=== PATIENT | female | born 1980 | race Caucasian/White ===

== ENCOUNTER 2016-11-17 10:01 | Emergency (ER) | payer SELFPAY ==
[~2016-11-17] VITALS: Ht 170.2 cm; Wt 75.0 kg
[2016-11-17 10:04] VITALS: BP 138/80; PULSE 108; RESP 20; TEMP 99.1; O2SAT 99
--- NOTE | 2016-11-17 10:10 | PD ---
HPI Chief Complaint: Injury Time Seen by Provider: 10:09 Travel History International Travel<30 days: No Contact w/Intl Traveler<30days: No Traveled to known affect area: No History of Present Illness HPI 36-year-old female presents the emergency department status post trip and fall yesterday on a raised area on the sidewalk. Patient states she twisted her right ankle and foot, falling forward straining her right shoulder as she grabbed a pole to prevent further falling. This happened yesterday afternoon. Pain is now worse in the right lateral ankle and dorsolateral foot. Patient has some tenderness along the right upper trapezius shoulder area. Pain in the right ankle and foot is a 10. Pain in the shoulder is 3 out of 10. She has no known drug allergies. [facility] Social History Alcohol Use: Yes Tobacco Use: No Substance Use: No Allergies-Medications (Allergen,Severity, Reaction): Coded Allergies: No Known Allergies (Unverified , 11/17/16) Reported Meds & Prescriptions Reported Meds & Active Scripts Active No Active Prescriptions or Reported Medications Review of Systems Except as stated in HPI: all other systems reviewed are Neg General / Constitutional: No: Fever Eyes: No: Visual changes HENT: No: Headaches Cardiovascular: No: Chest Pain or Discomfort Respiratory: No: Shortness of Breath Gastrointestinal: No: Abdominal Pain Genitourinary: No: Dysuria Musculoskeletal: Positive: Myalgias, Arthralgias, Limited ROM, Pain (see history of present illness) Skin: No Rash Neurologic: No: Weakness Psychiatric: No: Depression Endocrine: No: Polydipsia Hematologic/Lymphatic: No: Easy Bruising Physical Exam Narrative GENERAL: Patient appears in mild distress. SKIN: Warm and dry. Normal color. Normal turgor. No ecchymosis. HEAD: Atraumatic. Normocephalic. EYES: Pupils equal and round. No scleral icterus. No injection or drainage. ENT: No nasal bleeding or discharge. Mucous membranes pink and moist. Pharynx is clear. NECK: Trachea midline. Supple and nontender. CARDIOVASCULAR: Regular rate and rhythm. RESPIRATORY: No accessory muscle use. Clear to auscultation. Breath sounds equal bilaterally. MUSCULOSKELETAL: Extremities without clubbing, cyanosis, or edema. No obvious deformities. Right shoulder appears normal. She has soft tissue tenderness along the right upper trapezius, but no signs of bony trauma or dislocation. The right ankle and foot appears slightly swollen along the right lateral malleolus and dorsolateral foot. Patient is able to ambulate without difficulty. Distal neurovascular exam is normal. There is no other significant findings. NEUROLOGICAL: Awake and alert. No obvious cranial nerve deficits. Motor grossly within normal limits. Five out of 5 muscle strength in the arms and legs. Normal speech. PSYCHIATRIC: Appropriate mood and affect; insight and judgment normal. Data Data Last Documented VS Vital Signs Date Time Temp Pulse Resp B/P (MAP) Pulse Ox O2 Delivery O2 Flow Rate FiO2 11/17/16 10:04 99.1 108 20 138/80 (99) 99 Room Air Orders Orders Ankle, Complete ([id number]) (11/17/16 10:17) Foot, Complete ([id number]) (11/17/16 10:17) Ice/Cold Pack (11/17/16 10:17) [facility] Medical Decision Making Medical Screen Exam Complete: Yes Emergency Medical Condition: Yes Differential Diagnosis Trip and fall. Right shoulder strain. Right ankle sprain/foot sprain. Possible fracture. Narrative Course Patient is felt to be medically stable at time of exam. Ice pack is applied to the right ankle/foot. X-rays of the right ankle and foot are ordered. X-rays of the right shoulder not felt warranted at this time. X-rays of the right ankle and foot show no acute process per radiologist. Patient is placed in ankle stirrup splint and crutches. Patient is given a prescription for ibuprofen 600 mg 4 times a day #40. Patient is given exercises to do to strengthen the joint as it improves. Patient should elevate and ice the injured area frequently. Patient use crutches as needed and bear weight as tolerated. Patient follow with her primary care physician or return to the emergency department as needed. Diagnosis Primary Impression: Moderate right ankle sprain Qualified Codes: S93.401A - Sprain of unspecified ligament of right ankle, initial encounter Referrals: Primary Care Physician as needed Patient Instructions: Ankle Sprain (ED), Ankle Sprain Exercises (GEN), General Instructions Additional Instructions: X-rays of the right ankle and foot show no acute process per radiologist. Patient is placed in ankle stirrup splint and crutches. Patient is given a prescription for ibuprofen 600 mg 4 times a day #40. Patient is given exercises to do to strengthen the joint as it improves. Patient should elevate and ice the injured area frequently. Patient use crutches as needed and bear weight as tolerated. Patient follow with her primary care physician or return to the emergency department as needed. Med/Other Pt SpecificInfo: Prescription(s) given Scripts No Active Prescriptions or Reported Meds Disposition: 01 DISCHARGE HOME Condition: Stable Cali Ortiz Nov 17, 2016 10:10
[2016-11-17] MEDS ORDERED: IBUP-232 PO (10:57)
--- NOTE | 2016-11-17 10:58 | RADRPT ---
EXAM DATE/TIME: 11/17/2016 10:41 [facility] COMPARISON: No previous studies available for comparison. INDICATIONS : Twisted ankle and fell yesterday. Pain on lateral side of ankle. MEDICAL HISTORY : None. SURGICAL HISTORY : None. ENCOUNTER: Initial ACUITY: 1 day PAIN SCORE: 3/10 LOCATION: Right Foot FINDINGS: Three view examination of the right foot demonstrates no soft tissue swelling, dislocation, or fractu re. The tarsal bones appear intact. The interphalangeal and metatarsophalangeal joints are intact. The calcaneus is intact. Bony mineralization is normal. There is a small spur off the calcaneus. CONCLUSION: Negative trauma study. Joesph Haddad MD on November 17, 2016 at 10:55 Board Certified Radiologist. This report was verified electronically.
--- NOTE | 2016-11-17 10:59 | RADRPT ---
EXAM DATE/TIME: 11/17/2016 10:44 [facility] COMPARISON: No previous studies available for comparison. INDICATIONS : Twisted ankle and fell yesterday. Pain on lateral side. MEDICAL HISTORY : None. SURGICAL HISTORY : None. ENCOUNTER: Initial ACUITY: 1 day PAIN SCORE: 8/10 LOCATION: Right Ankle FINDINGS: Three view exam was performed of the right ankle. The bony structures are in normal alignment. No e vidence of fracture, dislocation, or soft tissue swelling. The ankle mortise is intact. No radiopaq ue foreign bodies are seen. Bony mineralization is normal. CONCLUSION: Negative trauma study. Joesph Haddad MD on November 17, 2016 at 10:56 Board Certified Radiologist. This report was verified electronically.
== END 2016-11-17 11:25 | disposition home or self-care (01) ==
LOC: NEPK 10:01
DX: S93.401A Sprain of unspecified ligament of right ankle, initial encounter (principal); M25.511 Pain in right shoulder; W01.0XXA Fall on same level from slipping, tripping and stumbling without subsequent striking against object, initial encounter
CPT/HCPCS: 73610; 73630; 99283; E0113; L1906